=== PATIENT | female | born 1985 | race Caucasian/White ===

== ENCOUNTER 2022-07-22 00:54 | Emergency (ER) | payer MEDICAID | END 2022-07-22 02:16 | disposition left against medical advice (07) | LOC: ER 00:54 | DX: R10.9 Unspecified abdominal pain (principal); Z53.21 Procedure and treatment not carried out due to patient leaving prior to being seen by health care provider ==

== ENCOUNTER 2022-12-17 14:10 | Emergency (ER) | payer MEDICAID ==
[~2022-12-17] VITALS: Ht 160 cm; Wt 59.1 kg
[2022-12-17 14:43] VITALS: BP 132/87
== END 2022-12-18 02:38 | disposition left against medical advice (07) ==
LOC: ER 14:11
DX: S61.411A Laceration without foreign body of right hand, initial encounter (principal); M79.641 Pain in right hand; F17.200 Nicotine dependence, unspecified, uncomplicated; Z72.89 Other problems related to lifestyle; V98.8XXA Other specified transport accidents, initial encounter; Y93.89 Activity, other specified; Y92.89 Other specified places as the place of occurrence of the external cause; Y99.8 Other external cause status
CPT/HCPCS: 99281

== ENCOUNTER 2022-12-18 16:09 | Emergency (ER) | payer MEDICAID ==
[~2022-12-18] VITALS: Ht 160 cm; Wt 59.1 kg
[2022-12-18 16:46] VITALS: BP 137/86
== END 2022-12-18 17:49 | disposition left against medical advice (07) ==
LOC: ER 16:10
DX: M79.643 Pain in unspecified hand (principal); Z53.21 Procedure and treatment not carried out due to patient leaving prior to being seen by health care provider
CPT/HCPCS: 99281

== ENCOUNTER 2023-01-26 20:56 | Inpatient (IN) | payer MEDICAID ==
[~2023-01-26] VITALS: Ht 160 cm; Wt 56.8 kg
[2023-01-26] MEDS ORDERED: morphine 4 MG/ML inj SYRINge IV ONE (22:10)
[2023-01-26] MEDS ORDERED: diphenhydrAMINE 50 mg/ml inj IV ONE (22:10)
[2023-01-26] MEDS ORDERED: piperacillin/tazo 3.375gm/50ml 50 ML IV ONE (22:10)
[2023-01-26] MEDS ORDERED: normal saline 1000ML IV soln IV ONE (22:10)
[2023-01-26] MEDS ORDERED: metoclopramide 5 mg/ml inj IV ONE (22:10)
[2023-01-26] MEDS ORDERED: vancomycin/NS 1 GM ADD-VANTAGE 250 ML IV ONE (22:10)
[2023-01-26] MEDS ORDERED: LORazepam 2 mg/ml vial IV ONE (22:10)
[2023-01-26] MEDS ORDERED: gabapentin 400mg capsule PO ONE (22:10)
[2023-01-26] MEDS ORDERED: iohexol 300mg/ml 100ml inj. ONE (22:18)
[2023-01-26 23:18] LABS: MEAN PLATELET VOLUME 8.2 FL (7.4-10.4); RED BLOOD COUNT 3.46 X10'6 (4.20-5.60)
[2023-01-26 23:19] LABS: BASOPHILS % (AUTO) 0.3 % (0-1); EOSINOPHILS # (AUTO) 0.2 X10'3 (0-0.9); EOSINOPHILS % (AUTO) 1.5 % (0-6); HEMATOCRIT 30.9 % (35.0-45.0); HEMOGLOBIN 10.6 g/dl (12.0-16.0); LYMPHOCYTES # (AUTO) 1.5 X10'3 (1.1-4.8); LYMPHOCYTES % (AUTO) 13.5 % (21-51); MEAN CORPUSCULAR HEMOGLOBIN 30.5 PG (27.0-31.0); MEAN CORPUSCULAR HGB CONC 34.2 g/dL (33.0-36.5); MEAN CORPUSCULAR VOLUME 89.3 FL (78-98); MONOCYTES # (AUTO) 0.8 X10'3 (0-0.9); MONOCYTES % (AUTO) 7.5 % (2-12); NEUTROPHILS # (AUTO) 8.4 X10'3 (1.8-7.7); NEUTROPHILS % (AUTO) 77.2 % (42-75); PLATELET COUNT 286 X10'3 (140-440); WHITE BLOOD COUNT 10.9 X10'3 (4.5-11.0)
[2023-01-26 23:30] LABS: ALANINE AMINOTRANSFERASE 17 U/L (12-78); ALBUMIN 3.1 G/DL (3.4-5.0); ALBUMIN/GLOBULIN RATIO 0.8 (1.1-1.5); ALKALINE PHOSPHATASE 109 IU/L (46-116); ANION GAP 5 (8-16); ASPARTATE AMINO TRANSFERASE 14 U/L (10-37); BILIRUBIN,TOTAL 0.1 MG/DL (0.1-1.0); BLOOD UREA NITROGEN 17 MG/DL (7-18); BUN/CREATININE RATIO 27.9 (10.0-20.0); CALCIUM 8.5 MG/DL (8.5-10.1); CHLORIDE 103 MMOL/L (99-107); CREATININE 0.61 MG/DL (0.40-0.90); GLUCOSE 118 MG/DL (70-104); POTASSIUM 3.5 MMOL/L (3.5-5.1); SODIUM 137 MMOL/L (135-145); TOTAL CARBON DIOXIDE 28.9 MMOL/L (24-32); TOTAL PROTEIN 7.2 G/DL (6.4-8.2); eGFR > 90 ML/MIN
--- NOTE | 2023-01-27 00:55 | NUR ---
paged agerwcolin now
[2023-01-27] MEDS ORDERED: magnesium Cl slow-release 64mg tablet PO PRN (01:00)
[2023-01-27] MEDS ORDERED: potassium Cl 20 mEq SR tablet PO PRN (01:00)
[2023-01-27] MEDS ORDERED: magnesium hydroxide 30ml (MOM) UD suspension PO PRN (01:00)
[2023-01-27] MEDS ORDERED: mag hydrox/Alum hydrox/simeth 30ml oral suspension PO PRN (01:00)
[2023-01-27] MEDS ORDERED: magnesium 2GM in 50ml NS 50 ML IV PRN (01:00)
[2023-01-27] MEDS ORDERED: ondansetron/PF 4mg/2ml inj IV PRN (01:00)
[2023-01-27] MEDS ORDERED: potassium Cl 40MEQ/1/2NS 520ml 520 ML IV PRN (01:00)
[2023-01-27] MEDS ORDERED: magnesium 4gm in 100ml NS 100 ML IV PRN (01:00)
[2023-01-27] MEDS ORDERED: VANCOmycin 1250MG/NS 250ml Bag 250 ML IV SCH ×2 (01:07→01:33)
[2023-01-27 03:25] LABS: MAGNESIUM 1.8 MG/DL (1.5-2.4); POTASSIUM 3.3 MMOL/L (3.5-5.1)
[2023-01-27] MEDS: docusate sod 100mg capsule PO SCH ×2 (08:00→20:07)
--- NOTE | 2023-01-27 08:29 | NUR ---
Report called to THOMAS Campos. Patient transferred up to floor via hospital bed.
--- NOTE | 2023-01-27 08:33 | NUR ---
Patient came up from the ER via hospital bed. NAD. Patient awoken when arrived. Is very anxious, accusing of myself and Martinez of getting in her bag which the patient had in her pocession the whole time when she was in the BR. Pt seems very disoriented and gian.
[2023-01-27] MEDS: potassium Cl 20 mEq SR tablet PO PRN ×3 (09:11→17:34)
[2023-01-27] MEDS: piperacillin/tazo 3.375gm/50ml 50 ML IV SCH ×2 (09:11→15:55)
[2023-01-27] MEDS: K and/or MAG REPLACEMENT MC SCH ×2 (09:22→20:00)
[2023-01-27] MEDS: morphine 2 MG/ML inj. syringe IV PRN ×2 (09:28→23:33)
--- NOTE | 2023-01-27 09:59 | NUR ---
Security came and searched the patients belongings. Found pipes, lighters, and a foil in backpack. family services worker consult created.
[2023-01-27 10:00] VITALS: BP 138/87
[2023-01-27] MEDS: vancomycin/NS 1 GM ADD-VANTAGE 250 ML IV SCH ×2 (11:23→23:09)
[2023-01-27] MEDS: acetaminophen 325mg tablet PO PRN ×2 (11:45→17:30)
--- NOTE | 2023-01-27 13:22 | NUR ---
promotional table spacer promotional table spacer Page Sent promotional table spacer PAGER ID: [phone] MESSAGE: [phone] Pt Maryse Keny 4012 A. Threating to leave AMA because she doesn't receive Rx of VICENTE powell. (102 character message out of a maximum of 240
[2023-01-27] MEDS: LORazepam 0.5 MG tablet PO PRN ×3 (13:33→23:33)
[2023-01-27] MEDS ORDERED: NO HOME MEDS (15:44)
[2023-01-27 18:00] VITALS: BP 110/71
--- NOTE | 2023-01-27 18:24 | NUR ---
Problems reprioritized. Patient report given, questions answered & plan of care reviewed Bushra GUZMAN
--- NOTE | 2023-01-27 18:27 | NUR ---
Angie [id number] Rm:[id number] Dennise Maryse Bustillo: Had a temp of 101.3 F a couple of hour ago. PO Tylenol administered brought back down to 99.1, FYI only. promotional table spacer promotional table spacer Page Sent promotional table spacer PAGER ID: [phone]
[2023-01-27 22:00] VITALS: BP 118/71
[2023-01-28] VITALS (17 sets, daily range): BP systolic 106–137; BP diastolic 56–90
[2023-01-28] MEDS: piperacillin/tazo 3.375gm/50ml 50 ML IV SCH ×3 (01:41→15:15)
[2023-01-28 05:04] LABS: BASOPHILS # (AUTO) 0.1 X10'3 (0-0.2); BASOPHILS % (AUTO) 0.6 % (0-1); EOSINOPHILS % (AUTO) 0.2 % (0-6); HEMATOCRIT 34.5 % (35.0-45.0); HEMOGLOBIN 11.7 g/dl (12.0-16.0); LYMPHOCYTES # (AUTO) 1.1 X10'3 (1.1-4.8); LYMPHOCYTES % (AUTO) 8.9 % (21-51); MEAN CORPUSCULAR VOLUME 88.4 FL (78-98); MEAN PLATELET VOLUME 8.7 FL (7.4-10.4); MONOCYTES # (AUTO) 0.9 X10'3 (0-0.9); MONOCYTES % (AUTO) 7.3 % (2-12); PLATELET COUNT 314 X10'3 (140-440); RED CELL DISTRIBUTION WIDTH 12.9 % (11.5-14.5); WHITE BLOOD COUNT 12.1 X10'3 (4.5-11.0)
[2023-01-28 05:18] LABS: ALANINE AMINOTRANSFERASE 72 U/L (12-78); ALBUMIN 2.8 G/DL (3.4-5.0); ALBUMIN/GLOBULIN RATIO 0.6 (1.1-1.5); ALKALINE PHOSPHATASE 209 IU/L (46-116); ANION GAP 9 (8-16); ASPARTATE AMINO TRANSFERASE 42 U/L (10-37); BILIRUBIN,TOTAL 0.3 MG/DL (0.1-1.0); BLOOD UREA NITROGEN 7 MG/DL (7-18); BUN/CREATININE RATIO 12.3 (10.0-20.0); CALCIUM 9.2 MG/DL (8.5-10.1); CHLORIDE 102 MMOL/L (99-107); CREATININE 0.57 MG/DL (0.40-0.90); GLUCOSE 126 MG/DL (70-104); POTASSIUM 3.5 MMOL/L (3.5-5.1); SODIUM 136 MMOL/L (135-145); TOTAL PROTEIN 7.5 G/DL (6.4-8.2); eGFR > 90 ML/MIN
[2023-01-28 05:57] LABS: FERRITIN 172 NG/ML (8-252)
[2023-01-28] MEDS ORDERED: BUPIVAcaine/PF 2.5 mg/ml (0.25%) 30ml vial ONE (05:57)
[2023-01-28 06:31] LABS: % IRON SATURATION 6 % (11-46); IRON 13 UG/DL (49-151); TOTAL IRON BINDING CAPACITY 223 UG/DL (259-388)
[2023-01-28] MEDS: docusate sod 100mg capsule PO SCH ×2 (07:29→20:00)
[2023-01-28] MEDS: K and/or MAG REPLACEMENT MC SCH ×2 (07:30→20:00)
[2023-01-28] MEDS ORDERED: LIDOcaine 2% (20mg/ml) 5ml vial ONE (08:58)
[2023-01-28] MEDS ORDERED: sevoflurane 250ml liquid IH ONE (08:58)
[2023-01-28] MEDS ORDERED: ringers solution, lacted 1,000 ML IV SCH (09:00)
[2023-01-28] MEDS ORDERED: proCHLORperazine 10 MG/2 ml inj IV PRN (09:00)
[2023-01-28] MEDS ORDERED: ondansetron/PF 4mg/2ml inj IV PRN (09:00)
[2023-01-28] MEDS ORDERED: meperidine/PF 25mg/ml syringe IV PRN ×3 (09:00)
[2023-01-28] MEDS ORDERED: morphine 2 MG/ML inj. syringe IV PRN (09:00)
[2023-01-28] MEDS ORDERED: morphine 4 MG/ML inj SYRINge IV PRN (09:00)
[2023-01-28] MEDS ORDERED: midazolam 1 mg/ML 2ml injection ONE (09:02)
[2023-01-28] MEDS ORDERED: fentaNYL/PF 50MCG/1 ML 2ML syringe ONE ×2 (09:02→09:50)
[2023-01-28] MEDS ORDERED: propofol inj 20 ML IV ONE (09:02)
--- NOTE | 2023-01-28 09:55 | NUR ---
Received from OR via BED, accompanied by Anesthesiologist and report given by SHAGUFTA Anesthesiologist. PATIENT WAKING UP, DENIES PAIN, V/S WNL, PIV 20G TO RIGHT FOREARM, LEFT HAND DRESSING C/D/I. Addendum: 01/28/23 at 1015 by Chester Charles RN Amended: Links added.
[2023-01-28] MEDS ORDERED: LORazepam 2 mg/ml vial IV ONE (10:00)
[2023-01-28] MEDS ORDERED: LORazepam 2 mg/ml vial ONE (10:02)
--- NOTE | 2023-01-28 10:20 | NUR ---
PATIENT HAS MET ALL CRITERIA FOR TRANSFER TO ORTHO FLOOR. VSS. DRESSINGS INTACT. BED LOW, CALL LIGHT PRESENT AND 2 RAILS UP. RN PRESENT TO ACCEPT CARE OF PATIENT AND REPORT HAS BEEN CALLED. ALL QUESTIONS ANSWERED TO ACCEPTING RN. Addendum: 01/28/23 at 1023 by Chester Charles RN Amended: Links added.
[2023-01-28] MEDS ORDERED: VANCOMYCIN LEVEL IV ONE (10:30)
[2023-01-28] MEDS: vancomycin/NS 1 GM ADD-VANTAGE 250 ML IV SCH (11:17)
--- NOTE | 2023-01-28 17:09 | NUR ---
Pt got back from recovery ~12:15pm. pt has remained drowsy/asleep majority of shift. pt is restless in bed at times, not very cooperative at times. Pt hasnt c/o any pain. Abx infusing per md order. Will continue to monitor pt
[2023-01-28] MEDS: LORazepam 0.5 MG tablet PO PRN (17:19)
[2023-01-28] MEDS: morphine 2 MG/ML inj. syringe IV PRN ×2 (17:26→23:12)
--- NOTE | 2023-01-28 17:30 | NUR ---
PAGER ID: [phone] MESSAGE: june chaparro [phone] re: Tonny Bustillo 4012a. pt requesting "home med Neurontin 800mg". thank you
--- NOTE | 2023-01-28 18:55 | NUR ---
Patient in room ORTHO 4012. I have received report from Anjana GUZMAN and had the opportunity to ask questions and assume patient care.
[2023-01-28] MEDS: gabapentin 300mg capsule PO SCH (20:52)
[2023-01-28] MEDS ORDERED: VANCOMYCIN 1,500MG in normal saline IV soln 300 ML IV SCH (23:00)
[2023-01-29] MEDS: piperacillin/tazo 3.375gm/50ml 50 ML IV SCH ×2 (01:35→07:43)
[2023-01-29 02:00] VITALS: BP 109/72
[2023-01-29 06:00] VITALS: BP 111/67
[2023-01-29 06:17] LABS: BASOPHILS # (AUTO) 0.1 X10'3 (0-0.2); BASOPHILS % (AUTO) 0.5 % (0-1); EOSINOPHILS # (AUTO) 0.1 X10'3 (0-0.9); EOSINOPHILS % (AUTO) 1.1 % (0-6); HEMATOCRIT 35.9 % (35.0-45.0); HEMOGLOBIN 12.2 g/dl (12.0-16.0); LYMPHOCYTES % (AUTO) 17.3 % (21-51); MEAN CORPUSCULAR VOLUME 88.2 FL (78-98); MEAN PLATELET VOLUME 7.9 FL (7.4-10.4); MONOCYTES # (AUTO) 0.7 X10'3 (0-0.9); MONOCYTES % (AUTO) 6.6 % (2-12); NEUTROPHILS # (AUTO) 8.5 X10'3 (1.8-7.7); NEUTROPHILS % (AUTO) 74.5 % (42-75); PLATELET COUNT 393 X10'3 (140-440); RED BLOOD COUNT 4.07 X10'6 (4.20-5.60); RED CELL DISTRIBUTION WIDTH 13.1 % (11.5-14.5); WHITE BLOOD COUNT 11.3 X10'3 (4.5-11.0)
[2023-01-29 06:31] LABS: ALANINE AMINOTRANSFERASE 47 U/L (12-78); ALBUMIN 2.5 G/DL (3.4-5.0); ALBUMIN/GLOBULIN RATIO 0.5 (1.1-1.5); ALKALINE PHOSPHATASE 172 IU/L (46-116); ANION GAP 8 (8-16); ASPARTATE AMINO TRANSFERASE 17 U/L (10-37); BILIRUBIN,TOTAL 0.3 MG/DL (0.1-1.0); BLOOD UREA NITROGEN 8 MG/DL (7-18); BUN/CREATININE RATIO 13.8 (10.0-20.0); CHLORIDE 105 MMOL/L (99-107); CREATININE 0.58 MG/DL (0.40-0.90); GLUCOSE 107 MG/DL (70-104); POTASSIUM 3.8 MMOL/L (3.5-5.1); SODIUM 140 MMOL/L (135-145); TOTAL CARBON DIOXIDE 27.2 MMOL/L (24-32); TOTAL PROTEIN 7.1 G/DL (6.4-8.2); eGFR > 90 ML/MIN
--- NOTE | 2023-01-29 06:45 | NUR ---
Problems reprioritized. Patient report given, questions answered & plan of care reviewed with Selina GUZMAN.
[2023-01-29] MEDS: LORazepam 0.5 MG tablet PO PRN (07:43)
[2023-01-29] MEDS: gabapentin 300mg capsule PO SCH (07:43)
[2023-01-29] MEDS: morphine 2 MG/ML inj. syringe IV PRN (07:43)
[2023-01-29] MEDS: docusate sod 100mg capsule PO SCH (07:43)
--- NOTE | 2023-01-29 08:37 | NUR ---
Dr Montoya is here. Patient appears to have snuck out down the vega and left AMA prior to signing ama form.
[2023-01-30] MEDS ORDERED: VANCOMYCIN LEVEL IV ONE (10:30)
== END 2023-01-29 08:39 | disposition left against medical advice (07) | DRG 180 ==
LOC: ER 20:57 → ED HOLD 01-27 00:57 → UNDOADMIN 01-27 00:57 → ORTHO 4S 01-27 01:01 → ED HOLD 01-27 08:30 → ORTHO 4S 01-27 08:30 → UNDODISIN 01-29 08:39
PROVIDERS: ADMIT Internal Medicine; ATTEND Family Medicine
PROC: 0X6M0Z3 Detachment at Left Thumb, Low, Open Approach (ICD-10-PCS; principal; 2023-01-28 08:58)
DX: I96 Gangrene, not elsewhere classified (principal); M86.8X4 Other osteomyelitis, hand; M65.842 Other synovitis and tenosynovitis, left hand; Z53.29 Procedure and treatment not carried out because of patient's decision for other reasons; D64.9 Anemia, unspecified; L02.512 Cutaneous abscess of left hand; F11.90 Opioid use, unspecified, uncomplicated; Z88.8 Allergy status to other drugs, medicaments and biological substances; Z71.51 Drug abuse counseling and surveillance of drug abuser
CPT/HCPCS: 36415; 71045; 73140; 73201; 80053; 80202; 82607; 82728; 82948; 83540; 83550; 83605; 83735; 84132; 84145; 85025; 87040; 87070; 87077; 87081; 87186; 99285; A4618; A6222; A6449; A7000; G0378; J1200; J2060; J2175; J2250; J2270; J2405; J2543; J2704; J2765; J3010; J3370; J3490; J7030; J7040; J7120; Q9967